=== PATIENT | female | born 1960 | race Caucasian/White ===

== ENCOUNTER 2017-06-05 19:28 | Emergency (ER) | payer MEDICAID ==
[~2017-06-05] VITALS: Ht 160 cm; Wt 55.0 kg
[~2017-06-05 19:28] MED LIST: CEFT500T3 PO; GABA100C4 PO; PAXI10TA8 PO; SERO25TA PO; XANA1TAB2 PO
[2017-06-05 19:31] VITALS: BP 102/59; PULSE 130; RESP 16; TEMP 98.6; O2SAT 96
[2017-06-05] MEDS ORDERED: SODIUM CHLOR 0.9% 1000 ML INJ 1,000 ML IV ONE (20:13)
--- NOTE | 2017-06-05 20:32 | PD ---
HPI Chief Complaint: Laceration/Skin Injury Time Seen by Provider: 20:04 Travel History International Travel<30 days: No Contact w/Intl Traveler<30days: No Traveled to known affect area: No History of Present Illness HPI Patient is a 57-year-old female presenting to the emergency department for evaluation of the laceration to her left ankle. Patient states she cut it this morning on a piece of glass. She reports that the floor was wet and there was glass on it which is how she sustained the injury. She also reports coughing and feeling tired. She denies any fevers, chills, nausea, vomiting, chest pain or shortness of breath. Patient states she waited to come in because they were looking for her wallet. Patient presents with her significant other. [facility] Past Medical History Medical History: Denies Significant Hx Tetanus Vaccination: < 5 Years Past Surgical History Hysterectomy: Yes Tonsillectomy: Yes Other Surgery: Yes (BREAST AUGMENTATION) Social History Alcohol Use: No (DENIES) Tobacco Use: Yes (/ PPD) Substance Use: No Allergies-Medications (Allergen,Severity, Reaction): Coded Allergies: No Known Allergies (Unverified , 06/05/17) Review of Systems Except as stated in HPI: all other systems reviewed are Neg Respiratory: Positive: Cough, Wheezing Skin: Positive Other (laceration, retained foreign body) Physical Exam Narrative GENERAL: Thin, well-developed, intoxicated-appearing female. Presenting in no acute distress. SKIN: Warm and dry. 4 cm laceration to left ankle. HEAD: Atraumatic. Normocephalic. EYES: Pupils equal and round. No scleral icterus. No injection or drainage. ENT: No nasal bleeding or discharge. Mucous membranes pink and moist. NECK: Trachea midline. No JVD. CARDIOVASCULAR: Tachycardic RESPIRATORY: No accessory muscle use. Scattered expiratory wheezes throughout. GASTROINTESTINAL: Abdomen soft, non-tender, nondistended. Hepatic and splenic margins not palpable. MUSCULOSKELETAL: Extremities without clubbing, cyanosis, or edema. No obvious deformities. NEUROLOGICAL: Awake and alert. No obvious cranial nerve deficits. Motor grossly within normal limits. Five out of 5 muscle strength in the arms and legs. Normal speech. PSYCHIATRIC: Appropriate mood and affect; insight and judgment normal. Data Data Last Documented VS Vital Signs Date Time Temp Pulse Resp B/P (MAP) Pulse Ox O2 Delivery O2 Flow Rate FiO2 2/11/18 22:09 107 20 110/70 (83) 96 06/05/17 20:40 Room Air 06/05/17 19:31 98.6 Orders Orders Complete Blood Count With Diff (06/05/17 20:13) Comprehensive Metabolic Panel (06/05/17 20:13) Prothrombin Time / Inr (Pt) (06/05/17 20:13) Act Partial Throm Time (Ptt) (06/05/17 20:13) Chest, Single Ap (06/05/17 20:13) Blood Glucose (06/05/17 20:13) Ecg Monitoring (06/05/17 20:13) Iv Access Insert/Monitor (06/05/17 20:13) Oximetry (06/05/17 20:13) Oxygen Administration (06/05/17 20:13) Sodium Chlor 0.9% 1000 Ml Inj (Ns 1000 M (06/05/17 20:13) Alcohol (Ethanol) (06/05/17 20:13) Drug Screen, Random Urine (06/05/17 20:13) Foot, Complete (Bds4wss) (06/05/17 ) Boot Fracture (06/05/17 ) Cefazolin Inj (Ancef Inj) (06/05/17 21:30) Labs Laboratory Tests Test 06/05/17 20:15 White Blood Count 8.3 TH/MM3 Red Blood Count 4.79 MIL/MM3 Hemoglobin 14.3 GM/DL Hematocrit 42.3 % Mean Corpuscular Volume 88.3 FL Mean Corpuscular Hemoglobin 30.0 PG Mean Corpuscular Hemoglobin Concent 33.9 % Red Cell Distribution Width 14.5 % Platelet Count 207 TH/MM3 Mean Platelet Volume 7.3 FL Neutrophils (%) (Auto) 77.6 % Lymphocytes (%) (Auto) 13.5 % Monocytes (%) (Auto) 7.4 % Eosinophils (%) (Auto) 0.9 % Basophils (%) (Auto) 0.6 % Neutrophils # (Auto) 6.4 TH/MM3 Lymphocytes # (Auto) 1.1 TH/MM3 Monocytes # (Auto) 0.6 TH/MM3 Eosinophils # (Auto) 0.1 TH/MM3 Basophils # (Auto) 0.1 TH/MM3 CBC Comment DIFF FINAL Differential Comment Prothrombin Time 10.4 SEC Prothromb Time International Ratio 1.0 RATIO Activated Partial Thromboplast Time 27.1 SEC Blood Urea Nitrogen 17 MG/DL Creatinine 1.28 MG/DL Random Glucose 71 MG/DL Total Protein 7.3 GM/DL Albumin 3.9 GM/DL Calcium Level 8.8 MG/DL Alkaline Phosphatase 139 U/L Aspartate Amino Transf (AST/SGOT) 37 U/L Alanine Aminotransferase (ALT/SGPT) 19 U/L Total Bilirubin 0.5 MG/DL Sodium Level 141 MEQ/L Potassium Level 3.9 MEQ/L Chloride Level 107 MEQ/L Carbon Dioxide Level 22.7 MEQ/L Anion Gap 11 MEQ/L Estimat Glomerular Filtration Rate 43 ML/MIN Ethyl Alcohol Level LESS THAN 3 MG/DL MDM Medical Decision Making Medical Screen Exam Complete: Yes Emergency Medical Condition: Yes Interpretation(s) Vital Signs Date Time Temp Pulse Resp B/P (MAP) Pulse Ox O2 Delivery O2 Flow Rate FiO2 06/05/17 20:11 18 06/05/17 19:31 98.6 130 16 102/59 (73) 96 Room Air Differential Diagnosis Laceration versus tendon injury versus retained foreign body versus bronchitis versus pneumonia versus intoxication versus other Narrative Course Patient's 57-year-old female presenting for evaluation of the laceration, she was also noted to have cough with expiratory wheezes. Labs and imaging ordered and pending. Please see procedure for laceration repair. Chest x-ray shows no acute disease, x-ray of the left foot shows no radiopaque foreign body. Labs reviewed, no acute findings identified. Patient was given 1 g of Ancef, she is a poor historian and is uncertain how long the laceration was open for. Patient has full muscle strength in her left foot, there is no sign of tendon injury. Patient was given 1 care instructions, she was educated on the signs and symptoms of infection. She was placed in a walking boot. She was encouraged follow-up with her primary doctor or return to emergency department for any new or worsening symptoms. Patient's spouse verbalized understanding of instructions. Patient stable for discharge. Procedures Procedure Narrative LACERATION LOCATION: Left heel LENGTH: 4 cm NUMBER OF STITCHES/CHANTEL: 13 stitches REPAIR: The area of the laceration was prepped with Betadine and sterilely draped. The laceration was infiltrated with 1% lidocaine with epi. The wound was copiously irrigated and explored without evidence of foreign body, tendon injury or neurovascular injury. The wound was closed using 4-0 Ethilon. This was a 1] layer repair. A sterile dressing was applied. The patient was advised to keep the dressing clean and dry. Patient tolerated the procedure well. Diagnosis Primary Impression: Laceration of ankle Qualified Codes: S91.012A - Laceration without foreign body, left ankle, initial encounter Additional Impression: Cough Referrals: Primary Care Physician Patient Instructions: Care For Your Stitches (DC), General Instructions, Laceration (ED), Unna Boot (ED) Additional Instructions: Keep the boot on your leg when you're walking to avoid breaking open the stitches Keep stitches clean and dry, do not submerge her ankle in water Stitches will need to be removed in 14 days, you can return to emergency department or follow-up with your primary doctor Return to emergency department immediately for any new or worsening symptoms Med/Other Pt SpecificInfo: Prescription(s) given Scripts Cephalexin (Keflex) 500 Mg Cap 500 MG PO Q12H for Infection for 7 Days, #14 CAP 0 Refills Prov: Kristen Luis 06/05/17 Disposition: 01 DISCHARGE HOME Condition: Stable Kristen Luis Jun 05, 2017 20:32
--- NOTE | 2017-06-05 20:43 | RADRPT ---
EXAM DATE/TIME: 06/05/2017 20:27 [facility] COMPARISON: No previous studies available for comparison. INDICATIONS : Left foot laceration. MEDICAL HISTORY : None. SURGICAL HISTORY : None. ENCOUNTER: Initial ACUITY: 1 day PAIN SCORE: 0/10 LOCATION: Bilateral chest FINDINGS: A single view of the chest demonstrates the lungs to be symmetrically aerated without evidence of mas s, infiltrate or effusion. The cardiomediastinal contours are unremarkable. Osseous structures are intact. Multiple faint beadlike opacities are related to patient's clothing. CONCLUSION: The lungs are clear. Aki Gandhi MD on June 05, 2017 at 20:40 Board Certified Radiologist. This report was verified electronically.
--- NOTE | 2017-06-05 20:44 | RADRPT ---
EXAM DATE/TIME: 06/05/2017 20:29 [facility] COMPARISON: No previous studies available for comparison. INDICATIONS : Left foot laceration at posterior heel. MEDICAL HISTORY : None. SURGICAL HISTORY : None. ENCOUNTER: Initial ACUITY: 1 day PAIN SCORE: 8/10 LOCATION: Left foot FINDINGS: Large soft tissue laceration in the posterior ankle just superior to the calcaneus. No radiopaque fo reign body seen. The osseous structures are in normal alignment. No fracture seen. CONCLUSION: Large posterior supratentorial laceration. No radiopaque foreign body seen. Aki Gandhi MD on June 05, 2017 at 20:40 Board Certified Radiologist. This report was verified electronically.
[2017-06-05 21:01] LABS: AUTOMATED NEUTROPHIL # 6.4 TH/MM3 (1.8-7.7); BASOPHIL # 0.1 TH/MM3 (0-0.2); BASOPHIL % 0.6 % (0.0-2.0); EOSINOPHIL # 0.1 TH/MM3 (0-0.4); EOSINOPHIL % 0.9 % (0.0-4.0); HEMATOCRIT 42.3 % (35.0-46.0); HEMOGLOBIN 14.3 GM/DL (11.6-15.3); LYMPH % 13.5 % (9.0-44.0); LYMPHOCYTE # 1.1 TH/MM3 (1.0-4.8); MEAN CELL VOLUME 88.3 FL (80.0-100.0); MEAN CORPUSCULAR HGB CONC 33.9 % (32.0-36.0); MEAN PLATELET VOLUME 7.3 FL (7.0-11.0); MONO % 7.4 % (0.0-8.0); MONOCYTE # 0.6 TH/MM3 (0-0.9); NEUT % 77.6 % (16.0-70.0); PLATELET COUNT 207 TH/MM3 (150-450); RED BLOOD COUNT 4.79 MIL/MM3 (4.00-5.30); RED CELL DISTRIBUTION WIDTH 14.5 % (11.6-17.2); WHITE BLOOD COUNT 8.3 TH/MM3 (4.0-11.0)
[2017-06-05 21:15] LABS: PROTHROMBIN TIME - PATIENT 10.4 SEC (9.8-11.6)
[2017-06-05 21:24] LABS: ALBUMIN 3.9 GM/DL (3.4-5.0); AST (GOT) 37 U/L (15-37); BICARBONATE 22.7 MEQ/L (21.0-32.0); BLOOD UREA NITROGEN 17 MG/DL (7-18); CALCIUM 8.8 MG/DL (8.5-10.1); CHLORIDE 107 MEQ/L (98-107); CREATININE 1.28 MG/DL (0.50-1.00); GLOMERULAR FILTRATION RATE 43 ML/MIN (>89); GLUCOSE,RANDOM 71 MG/DL (74-106); SODIUM (NA) 141 MEQ/L (136-145)
[2017-06-05 21:28] LABS: ALKALINE PHOSPHATASE 139 U/L (45-117); ALT (GPT) 19 U/L (10-53); TOTAL BILIRUBIN ADULT 0.5 MG/DL (0.2-1.0); TOTAL PROTEIN 7.3 GM/DL (6.4-8.2)
[2017-06-05 22:09] VITALS: BP 110/70
[2017-06-05] MEDS ORDERED: CEPH-460 PO (22:17)
== END 2017-06-05 22:53 | disposition home or self-care (01) ==
LOC: NEPD 19:28 → MERGE 19:28 → NEPD 22:53
DX: S91.012A Laceration without foreign body, left ankle, initial encounter (principal); R05 Cough; R06.2 Wheezing; R00.0 Tachycardia, unspecified; F17.200 Nicotine dependence, unspecified, uncomplicated; W25.XXXA Contact with sharp glass, initial encounter
CPT/HCPCS: 12002; 71045; 73630; 80053; 80307; 85025; 85610; 85730; 96361; 96365; 99284; J0690; J7030; L2114

== ENCOUNTER 2017-06-18 15:00 | Emergency (ER) | payer MEDICAID, MEDICARE, OTHER ==
[~2017-06-18] VITALS: Ht 160 cm; Wt 56.0 kg
[~2017-06-18 15:00] MED LIST changes: +CEPH-460 PO
[2017-06-18 15:02] VITALS: BP 123/74; PULSE 85; RESP 14; TEMP 97.5; O2SAT 98
[2017-06-18] MEDS ORDERED: SODIUM CHLORIDE 0.9% FLUSH 10 ML FLUSH IVF PRN (17:00)
[2017-06-18 17:10] VITALS: BP 120/72; PULSE 57; RESP 18; O2SAT 100
[2017-06-18 17:47] LABS: AUTOMATED NEUTROPHIL # 4.5 TH/MM3 (1.8-7.7); BASOPHIL % 0.6 % (0.0-2.0); EOSINOPHIL # 0.1 TH/MM3 (0-0.4); HEMATOCRIT 44.2 % (35.0-46.0); HEMOGLOBIN 15.1 GM/DL (11.6-15.3); LYMPH % 24.6 % (9.0-44.0); LYMPHOCYTE # 1.6 TH/MM3 (1.0-4.8); MEAN CORPUSCULAR HEMOGLOBIN 30.4 PG (27.0-34.0); MEAN CORPUSCULAR HGB CONC 34.2 % (32.0-36.0); MEAN PLATELET VOLUME 7.1 FL (7.0-11.0); MONO % 5.6 % (0.0-8.0); MONOCYTE # 0.4 TH/MM3 (0-0.9); NEUT % 68.2 % (16.0-70.0); PLATELET COUNT 219 TH/MM3 (150-450); RED BLOOD COUNT 4.97 MIL/MM3 (4.00-5.30); RED CELL DISTRIBUTION WIDTH 14.5 % (11.6-17.2); WHITE BLOOD COUNT 6.6 TH/MM3 (4.0-11.0)
--- NOTE | 2017-06-18 17:49 | PD ---
HPI Chief Complaint: Wound/Suture/Staple Re-Check Time Seen by Provider: 16:48 Travel History International Travel<30 days: No Contact w/Intl Traveler<30days: No Traveled to known affect area: No History of Present Illness HPI 57-year-old female presents to the emergency department with 2 complaints. Her first complaint is request for suture removal to her left heel. The sutures were placed on June 05. She says she has had increased pain to the site. She has been applying topical antibiotic ointment. Denies fever, vomiting. Said she was given antibiotics that she took and finished from the date of the laceration. Her second complaint is left-sided chest pain that started 4 days ago. She says it is constant. It fluctuates in intensity. Reports heart palpitations and shortness of breath. Shortness of breath is worse at night and with activity. Denies cardiac history. Reports tobacco use. Denies illicit drug use or alcohol use. Reports tobacco use. Denies having chest pain like this before. Denies family history of cardiac events. Has not taken any medications or tried any treatments to alleviate her symptoms. Says her pain is better when she holds pressure to the area. Denies the pain is worse with deep breathing, movement, palpation to the area. No known aggravating factors. Denies injury. Primary care provider [facility]. No known allergies. Denies significant past medical history. Has no other medical complaints. No other modifying factors or associated signs and symptoms. 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 "A LESION IN HER RIGHT LUNG") Pneumonia: Yes (08/08) Renal Failure: No Sleep Apnea: No Ulcer: No ?: Not Tubal Ligation: Yes Past Surgical History Abdominal Surgery: No Cardiac Surgery: No Ear Surgery: No Endocrine Surgery: No Eye Surgery: No Genitourinary Surgery: No Gynecologic Surgery: No Hysterectomy: Yes Oral Surgery: No Thoracic Surgery: No Tonsillectomy: Yes Other Surgery: Yes (BREAST AUGMENTATION) Social History Alcohol Use: No Tobacco Use: Yes (1/2 PPD) Substance Use: No Allergies-Medications (Allergen,Severity, Reaction): Coded Allergies: No Known Allergies (Unverified , 03/23/16) Reported Meds & Prescriptions Reported Meds & Active Scripts Active Bactrim DS (Sulfamethoxazole-Trimethoprim) 800-160 Mg Tab 1 Tab PO BID 10 Days Xanax (Alprazolam) 1 Mg Tab 0.5 Mg PO Q6H PRN Reported Suboxone Sublingual Film (Buprenorphine-Naloxone Sublingual Film) 8-2 Mg Film 1 Film SL BID Unique ID number required: Gabapentin 100 Mg Cap 100 Mg PO BID Paxil (Paroxetine HCl) 10 Mg Tab 10 Mg PO DAILY Review of Systems Except as stated in HPI: all other systems reviewed are Neg Physical Exam Narrative GENERAL: Well-nourished, well-developed female patient, in no acute distress; appears and acts intoxicated SKIN: Warm and dry. Back of left heel with laceration that is well approximated and with sutures intact; there is surrounding erythema and minimal amount of drainage coming from the laceration; the area is soft and does not appear well healed. No lymphangitis noted. HEAD: Atraumatic. Normocephalic. EYES: Pupils equal and round. No scleral icterus. No injection or drainage. ENT: Mucosa pink and moist. NECK: Trachea midline. CHEST: Left anterior lower chest wall, just below the left breast, with reproducible chest wall tenderness; no crepitance or deformity; without erythema , edema, ecchymosis. No retractions or use of accessory muscles. CARDIOVASCULAR: Regular rate and rhythm. No murmur appreciated. RESPIRATORY: No accessory muscle use. Clear to auscultation. Breath sounds equal bilaterally. No retractions or tachypnea. GASTROINTESTINAL: Abdomen soft, non-tender, nondistended. Hepatic and splenic margins not palpable. Bowel sounds are active 4 quadrants. MUSCULOSKELETAL: No obvious deformities. No clubbing. No cyanosis. No edema. NEUROLOGICAL: Awake and alert. Oriented 3. No obvious cranial nerve deficits. Motor grossly within normal limits. Normal speech. Moves all extremities. 5/5 strength to all extremities. PSYCHIATRIC: Appropriate mood and affect; insight and judgment normal. Data Data Last Documented VS Vital Signs Date Time Temp Pulse Resp B/P (MAP) Pulse Ox O2 Delivery O2 Flow Rate FiO2 06/18/17 17:10 57 18 120/72 (88) 100 Room Air 06/18/17 15:02 97.5 Orders Orders Electrocardiogram (06/18/17 ) Electrocardiogram (06/18/17 16:49) Basic Metabolic Panel (Bmp) (06/18/17 16:49) Ckmb (Isoenzyme) Profile (06/18/17 16:49) Complete Blood Count With Diff (06/18/17 16:49) Magnesium (Mg) (06/18/17 16:49) Prothrombin Time / Inr (Pt) (06/18/17 16:49) Act Partial Throm Time (Ptt) (06/18/17 16:49) Troponin I (06/18/17 16:49) Ecg Monitoring (06/18/17 16:49) Bilateral Bp Monitoring (06/18/17 16:49) Iv Access Insert/Monitor (06/18/17 16:49) Oximetry (06/18/17 16:49) Oxygen Administration (06/18/17 16:49) Sodium Chloride 0.9% Flush (Ns Flush) (06/18/17 17:00) Chest, Pa & Lat (06/18/17 16:49) Sulfamet-Trimeth Ds 800-160 Mg (Bactrim (06/18/17 18:00) Wound Culture And Gram Stain (06/18/17 17:46) Ibuprofen (Motrin) (06/18/17 18:30) Labs Laboratory Tests Test 06/18/17 17:20 06/18/17 18:20 White Blood Count 6.6 TH/MM3 Red Blood Count 4.97 MIL/MM3 Hemoglobin 15.1 GM/DL Hematocrit 44.2 % Mean Corpuscular Volume 89.0 FL Mean Corpuscular Hemoglobin 30.4 PG Mean Corpuscular Hemoglobin Concent 34.2 % Red Cell Distribution Width 14.5 % Platelet Count 219 TH/MM3 Mean Platelet Volume 7.1 FL Neutrophils (%) (Auto) 68.2 % Lymphocytes (%) (Auto) 24.6 % Monocytes (%) (Auto) 5.6 % Eosinophils (%) (Auto) 1.0 % Basophils (%) (Auto) 0.6 % Neutrophils # (Auto) 4.5 TH/MM3 Lymphocytes # (Auto) 1.6 TH/MM3 Monocytes # (Auto) 0.4 TH/MM3 Eosinophils # (Auto) 0.1 TH/MM3 Basophils # (Auto) 0.0 TH/MM3 CBC Comment DIFF FINAL Differential Comment Prothrombin Time 10.0 SEC Prothromb Time International Ratio 1.0 RATIO Activated Partial Thromboplast Time 25.7 SEC Blood Urea Nitrogen 7 MG/DL Creatinine 0.67 MG/DL Random Glucose 72 MG/DL Calcium Level 8.8 MG/DL Magnesium Level 2.0 MG/DL Sodium Level 139 MEQ/L Potassium Level 4.8 MEQ/L Chloride Level 108 MEQ/L Carbon Dioxide Level 27.7 MEQ/L Anion Gap 3 MEQ/L Estimat Glomerular Filtration Rate 90 ML/MIN Total Creatine Kinase 80 U/L Troponin I LESS THAN 0.02 NG/ML MDM Medical Decision Making Medical Screen Exam Complete: Yes Emergency Medical Condition: Yes Medical Record Reviewed: Yes Differential Diagnosis Suture removal, wound infection, chest pain, chest wall pain Narrative Course 57-year-old female presents for suture removal of the left heel. The left heel appears infected and the sutures are not ready to come out. Wound culture pending. Bactrim ordered and will be prescribed for home. Instructed patient she had to return in 5-7 days for suture removal. Patient is also reporting chest pain. Chest pain protocol ordered. 1615: EKG was sinus bradycardia; reviewed by Dr. Hilton. 1750: On my physical examination patient's chest pain is reproducible to the left lower, anterior rib cage just below the left breast. 1823: CBC, coag unremarkable. Chest x-ray conclude: Chest X-Ray 06/18/17 1649 Signed Impressions: Service Date/Time: Sunday, June 18, 2017 17:30 - CONCLUSION: No acute disease. No significant change has occurred. Piyush Lainez MD 1911: Patient did not want to stay and wait for her lab results. AMA: The risks of leaving against medical advice without further evaluation treatment were discussed with the patient. These risks include cardiac dysfunction, cardiac dysrhythmia, possible heart attack, possible stroke or . The patient indicated understanding of these risks and appeared to have the capacity to make this decision. Diagnosis Primary Impression: Left against medical advice Med/Other Pt SpecificInfo: Prescription(s) given Scripts Sulfamethoxazole-Trimethoprim (Bactrim DS) 800-160 Mg Tab 1 TAB PO BID for Infection for 10 Days, #20 TAB 0 Refills Prov: Tatianna Looney 06/18/17 Disposition: 07 AGAINST MEDICAL ADVICE Tatianna Looney Jun 18, 2017 17:49
[2017-06-18] MEDS ORDERED: SUBO8MIS SL (17:57)
[2017-06-18] MEDS ORDERED: SULFAMETHOXAZOLE-TRIMETHOPRIM DS 800-160 MG TAB PO ONE (18:00)
--- NOTE | 2017-06-18 18:05 | RADRPT ---
EXAM DATE/TIME: 06/18/2017 17:30 [facility] COMPARISON: CHEST SINGLE AP, June 05, 2017, 20:27. INDICATIONS : Cough. Congestion. MEDICAL HISTORY : None. SURGICAL HISTORY : None. ENCOUNTER: Initial ACUITY: 1 day PAIN SCORE: 6/10 LOCATION: Bilateral chest FINDINGS: PA and lateral views of the chest demonstrate the lungs to be symmetrically aerated without evidence of mass, infiltrate or effusion. There is some hyperaeration of both lung hernandez. The cardiomediasti nal contours are unremarkable. Osseous structures are intact. CONCLUSION: No acute disease. No significant change has occurred. Piyush Lainez MD on June 18, 2017 at 18:03 Board Certified Radiologist. This report was verified electronically.
[2017-06-18] MEDS ORDERED: IBUPROFEN 800 MG TAB PO ONE (18:30)
[2017-06-18] MEDS ORDERED: BACT800T5 PO (18:31)
[2017-06-18 19:06] LABS: BICARBONATE 27.7 MEQ/L (21.0-32.0); BLOOD UREA NITROGEN 7 MG/DL (7-18); CALCIUM 8.8 MG/DL (8.5-10.1); CHLORIDE 108 MEQ/L (98-107); CREATININE 0.67 MG/DL (0.50-1.00); GLOMERULAR FILTRATION RATE 90 ML/MIN (>89); GLUCOSE,RANDOM 72 MG/DL (74-106); SODIUM (NA) 139 MEQ/L (136-145)
[2017-06-18 19:08] LABS: TROPONIN I LESS THAN 0.02 NG/ML (0.02-0.05)
--- NOTE | 2017-06-18 21:12 | EKG ---
Date Performed: 06/18/2017 Time Performed: 16:12:17 PTAGE: 57 years EKG: SINUS BRADYCARDIA NONSPECIFIC ST CHANGES BORDERLINE ECG NO PREVIOUS TRACING DOCTOR: Jaxon Sorto Interpretating Date/Time 06/18/2017 21:11:26
== END 2017-06-18 19:12 | disposition left against medical advice (07) ==
LOC: NEPD 15:00
DX: R06.02 Shortness of breath (principal); R07.9 Chest pain, unspecified; R00.1 Bradycardia, unspecified; F17.200 Nicotine dependence, unspecified, uncomplicated; S91.312D Laceration without foreign body, left foot, subsequent encounter; L08.9 Local infection of the skin and subcutaneous tissue, unspecified; X58.XXXD Exposure to other specified factors, subsequent encounter
CPT/HCPCS: 71046; 80048; 82550; 83735; 84484; 85025; 85610; 85730; 86403; 87070; 87186; 87205; 93005; 99285